=== PATIENT | female | born 1980 | race Two or more races ===

== ENCOUNTER 2023-03-26 12:31 | Emergency (ER) | payer SELFPAY ==
[2023-03-26 12:39] VITALS: BP 175/96; PULSE 65; RESP 16; TEMP 36.7; O2SAT 100; BMI 26.6
--- NOTE | 2023-03-26 13:14 | ED_ITS ---
HPI - Female Genitourinary General Chief complaint: Urogenital-Female Stated complaint: uti complaints Time Seen by Provider: 03/26/23 12:38 Source: patient and family Mode of arrival: walk-in Limitations: no limitations History of Present Illness HPI Narrative: Patient presents with increased urinary frequency, cloudy urine, pain with urination that began yesterday. @ days afo she had some left flank and left l ower abdominal pain. She noted blood on the tissue when wiping this morning. No fever or chills. She took cranberry pills without any improvement. Related Data Previous Rx's Medication Instructions Recorded ciprofloxacin HCl 500 mg tablet 500 mg PO BID #10 tabs 03/26/23 (Cipro) phenazopyridine 100 mg tablet 100 mg PO Q8H PRN dysuria 6 doses 03/26/23 (Pyridium) #6 tabs Allergies Allergy/AdvReac Type Severity Reaction Status Date / Time No Known Drug Allergies Allergy Verified 03/26/23 12:47 PFSH PFSH Social History Smoking status: Never smoker Exam Narrative Exam Narrative: Nurses notes and vital signs reviewed and patient is not hypoxic. afebrile General: Well-appearing and in no apparent distress. Skin: Warm, dry, no pallor noted. No rash. Eye: Pupils are equal, round and EOMI. No scleral icterus. Cardiovascular: Regular Rate and Rhythm without murmur, gallop or rub. Respiratory: No accessory muscle use or respiratory distress. Lungs are clear to auscultation, no wheezing, rales or rhonchi Back: No CVA tenderness GI: Abdomen is soft, non-distended. Normal bowel sounds.Mild LLQ tenderness to palpation. No rebound, guarding, or rigidity noted. Neurological: A&O x4. No cranial nerve dysfunction observed. No truncal ataxia. Moves all extremities. Sensation intact. Psychiatric: Cooperative and interactive. Normal mood and affect. Constitutional Vital Signs, click to edit/add: Last Vital Signs Temp 98.0 F 03/26/23 12:39 Pulse 65 03/26/23 12:39 Resp 16 03/26/23 12:39 BP 175/96 H 03/26/23 12:39 Pulse Ox 100 03/26/23 12:39 O2 Del Method Room Air 03/26/23 12:39 Course Vital Signs Vital signs: Vital Signs Temperature 98.0 F 03/26/23 12:39 Pulse Rate 65 03/26/23 12:39 Respiratory Rate 16 03/26/23 12:39 Blood Pressure 175/96 H 03/26/23 12:39 Pulse Oximetry 100 03/26/23 12:39 Oxygen Delivery Method Room Air 03/26/23 12:39 Temperature 98.0 F 03/26/23 12:39 Pulse Rate 65 03/26/23 12:39 Respiratory Rate 16 03/26/23 12:39 Blood Pressure 175/96 H 03/26/23 12:39 Pulse Oximetry 100 03/26/23 12:39 Oxygen Delivery Method Room Air 03/26/23 12:39 MDM - Female Genitourinary MDM Narrative Medical decision making narrative: Urinalysis shows acute urinary tract infection. The patient was informed of results and discharged home with a prescription for ciprofloxacin and for Pyridium for pain. Also instructed to take tylenol or ibuprofen for any continued abdominal pain or flank pain, which seems to have improved at this t morenita. ED return if worse. Lab Data Labs: Lab Results 03/26/23 Range/Units 13:05 Urine Color Lt. yellow (YELLOW) Urine Clarity Clear (CLEAR) Urine pH 7.0 (5.0-9.0) Ur Specific [place] <=1.005 A (1.005-1.025) Urine Protein Negative (NEG/TRACE) mg/dL Urine Glucose (UA) Negative (NEGATIVE) mg/dL Urine Ketones Negative (NEGATIVE) mg/dL Urine Occult Blood Large A (NEGATIVE) Urine Nitrite Negative (NEGATIVE) Urine Bilirubin Negative (NEGATIVE) Urine Urobilinogen 0.2 (0.2-1.0) EU/dL Ur Leukocyte Esterase Large A (NEGATIVE) Urine RBC 10-20 A (0-2) #/HPF Urine WBC 50-75 A (NONE SEEN) #/HPF Ur Squamous Epith Cells Few A (NONE/RARE) #/LPF Urine Bacteria Large A (NONE SEEN) #/HPF Urine Mucus None seen (NONE SEEN) Ur Culture Indicated? Yes Discharge Plan Discharge Chief Complaint: Urogenital-Female Clinical Impression: Urinary tract infection Patient Disposition: Home, Self-Care Time of Disposition Decision: 14:11 Prescriptions / Home Meds: New ciprofloxacin HCl [Cipro] 500 mg tablet 500 mg PO BID Qty: 10 0RF phenazopyridine [Pyridium] 100 mg tablet 100 mg PO Q8H PRN (Reason: dysuria) Qty: 6 0RF Instructions: Urinary Tract Infection in Women (ED) Stand Alone Forms: Portal Instructions Referrals: MAIRA SMITH MD [Primary Care Provider] - 1 week
[2023-03-26 13:32] LABS: Bilirubin Urine NEGATIVE (NEGATIVE); Blood Urine LARGE (NEGATIVE); Clarity Urine CLEAR (CLEAR); Color Urine LT. YELLOW (YELLOW); Glucose Urine UA NEGATIVE (NEGATIVE); Ketones Urine NEGATIVE (NEGATIVE); Leukocyte Esterase Urine LARGE (NEGATIVE); Nitrite Urine NEGATIVE (NEGATIVE); Protein Urine NEGATIVE (NEG/TRACE); Specific Gravity Urine <=1.005 (1.005-1.025); Urobilinogen Urine 0.2 EU/dL (0.2-1.0)
[2023-03-26 13:43] LABS: Urine Microscopic Indicated YES; WBC Urine 50-75 #/HPF (NONE SEEN)
[2023-03-26 13:45] LABS: Bacteria Urine LARGE #/HPF (NONE SEEN); Mucus Urine NONE SEEN (NONE SEEN); Squamous Epithelial Cell Urine FEW #/LPF (NONE/RARE)
[2023-03-26 13:46] LABS: Urine Culture Indicated YES
== END 2023-03-26 15:02 | disposition home or self-care (01) ==
PROVIDERS: Emergency Provider Emergency Medicine; PCP Internal Medicine
DX: N39.0 Urinary tract infection, site not specified (principal)
CPT/HCPCS: 81001; 87086; 87150; 87186; 99283